=== PATIENT | female | born 2000 | race Caucasian/White ===

== ENCOUNTER 2021-07-29 21:10 | Emergency (ER) | payer OTHER, SELFPAY ==
--- NOTE | ~2021-07-29 | XR_ITS ---
EXAMINATION: XR knee RT 2V DATE: 07/29/2021 21:42 INDICATION: Right knee pain. TECHNIQUE: 2 views of right knee were obtained. COMPARISON: None. FINDINGS: Bone alignment is normal. No fracture. Joint spaces are well maintained. There is no knee j oint effusion. IMPRESSION: 1. Normal right knee. Reviewed, dictated and finalized at location A. IMPRESSION: 1. Normal right knee.
[2021-07-29 21:32] VITALS: BP 121/84; PULSE 86; RESP 19; TEMP 36.9; O2SAT 98
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
[2021-07-29] MEDS: KETOROLAC (*BKC) 60 MG/2 ML VIAL IM (21:50)
[2021-07-29 22:27] VITALS: BP 110/71; PULSE 99; RESP 20; TEMP 37.2; O2SAT 97
== END 2021-07-29 22:29 | disposition home or self-care (01) ==
PROVIDERS: Emergency Provider Emergency Medicine; PCP Family Medicine
DX: S83.91XA Sprain of unspecified site of right knee, initial encounter (principal)
CPT/HCPCS: 73560; 96372; 99283; J1885